=== PATIENT | male | born 1985 | race Caucasian/White ===

== ENCOUNTER 2022-01-12 14:58 | Emergency (ER) | payer SELFPAY ==
[~2022-01-12] VITALS: Ht 167.6 cm; Wt 64.4 kg
[2022-01-12 15:03] VITALS: BP 177/98
[2022-01-12] MEDS ORDERED: NALO4SPR BNOSTRILS (16:58)
--- NOTE | 2022-01-12 17:00 | NUR ---
PT STATED HE WANTS TO LEAVE NOW AND FEELS FINE. AWARE.
--- NOTE | 2022-01-12 17:14 | NUR ---
Patient does not wish to proceed with medical care recommended by Dr. boyce. Patient given information related to possible complications, up to and including , which could occur as a result of leaving the hospital at this time. Patient verbalizes understanding of risks involved due to leaving against medical advice. Patient has signed AMA form.
== END 2022-01-12 17:15 | disposition left against medical advice (07) ==
LOC: EDBD 15:02 → ER 15:02
DX: T40.411A Poisoning by fentanyl or fentanyl analogs, accidental (unintentional), initial encounter (principal); Y92.89 Other specified places as the place of occurrence of the external cause